=== PATIENT | female | born 1985 | race Caucasian/White ===

== ENCOUNTER 2017-07-15 01:52 | Emergency (ER) | payer OTHER ==
[~2017-07-15] VITALS: Ht 172.7 cm; Wt 63.5 kg
[~2017-07-15 01:52] MED LIST: EXPECTA PRENAT1 EACH; IBUP800 PO; IRON150C
[2017-07-15] MEDS ORDERED: ERYT1OIN LEFTEYE (02:51)
== END 2017-07-15 02:55 | disposition home or self-care (01) ==
LOC: ER 01:52
DX: H10.9 Unspecified conjunctivitis (principal); F17.210 Nicotine dependence, cigarettes, uncomplicated
CPT/HCPCS: 99283

== ENCOUNTER 2018-08-15 20:51 | Emergency (ER) | payer OTHER ==
[~2018-08-15] VITALS: Ht 172.7 cm; Wt 68.0 kg
[~2018-08-15 20:51] MED LIST changes: +ERYT1OIN LEFTEYE
[2018-08-15] MEDS ORDERED: SERT50 PO (21:02)
[2018-08-15] MEDS ORDERED: Inderal 20 mg T20 MG GT (21:02)
[2018-08-15] MEDS ORDERED: TRAZ50 PO (21:02)
[2018-08-15] MEDS ORDERED: KETO10 PO (22:12)
[2018-08-15] MEDS ORDERED: PENVK500 PO (22:12)
== END 2018-08-15 22:19 | disposition home or self-care (01) ==
LOC: ER 20:51
DX: K04.7 Periapical abscess without sinus (principal); F17.210 Nicotine dependence, cigarettes, uncomplicated
CPT/HCPCS: 99282

== ENCOUNTER 2018-08-17 02:41 | Emergency (ER) | payer OTHER ==
[~2018-08-17 02:41] MED LIST changes: +Inderal 20 mg T20 MG GT; +KETO10 PO; +PENVK500 PO; +SERT50 PO; +TRAZ50 PO
== END 2018-08-17 03:38 | disposition left against medical advice (07) ==
LOC: ER 02:41
DX: Z53.21 Procedure and treatment not carried out due to patient leaving prior to being seen by health care provider (principal); N39.0 Urinary tract infection, site not specified

== ENCOUNTER 2018-09-09 19:03 | Emergency (ER) | payer OTHER ==
[~2018-09-09] VITALS: Ht 175.3 cm; Wt 68.0 kg
[2018-09-09] MEDS ORDERED: Vibramycin100 MG PO (20:11)
== END 2018-09-09 20:24 | disposition home or self-care (01) ==
LOC: ER 19:03
DX: L03.211 Cellulitis of face (principal); Z79.899 Other long term (current) drug therapy; F41.9 Anxiety disorder, unspecified; F17.290 Nicotine dependence, other tobacco product, uncomplicated
CPT/HCPCS: 99283

== ENCOUNTER 2018-10-10 21:55 | Emergency (ER) | payer OTHER ==
[~2018-10-10] VITALS: Ht 175.3 cm; Wt 70.3 kg
[~2018-10-10 21:55] MED LIST changes: +Vibramycin100 MG PO
[2018-10-10] MEDS ORDERED: MUPIROCIN1 GM TOP (23:01)
[2018-10-10] MEDS ORDERED: Monodox100 MG PO (23:01)
[2018-10-10] MEDS ORDERED: CLON.1 (23:11)
== END 2018-10-10 23:05 | disposition home or self-care (01) ==
LOC: ER 21:55
DX: L03.211 Cellulitis of face (principal); Z79.899 Other long term (current) drug therapy; F41.9 Anxiety disorder, unspecified; F17.290 Nicotine dependence, other tobacco product, uncomplicated
CPT/HCPCS: 99282

== ENCOUNTER → 2020-03-21 | Outpatient (CLI) | payer OTHER ==
[~2020-03-21] MED LIST changes: +CLON.1; +MUPIROCIN1 GM TOP; +Monodox100 MG PO
== END ==
LOC: LAB 12:34 → LAB SHORT 12:34
DX: B18.2 Chronic viral hepatitis C (principal)
CPT/HCPCS: 81025

== ENCOUNTER → 2021-12-03 | Outpatient (CLI) | payer OTHER ==
[2021-12-04 15:10] LABS: HPV 16 Negative (Negative); HPV 18 Negative (Negative); HPV OTHER HR TYPES Negative (Negative)
== END | disposition home or self-care (01) ==
LOC: LAB 14:30 → LAB SHORT 14:30
PROVIDERS: Registered Nurse
DX: Z12.4 Encounter for screening for malignant neoplasm of cervix (principal)
CPT/HCPCS: 87624; G0123